=== PATIENT | male | born 1975 | race African-American/Black ===

== ENCOUNTER 2017-08-20 15:12 | Emergency (ER) | payer OTHER ==
[~2017-08-20] VITALS: Ht 167.6 cm; Wt 68.0 kg
--- NOTE | ~2017-08-20 | EKG ---
[address] [address] ELECTROCARDIOGRAM REPORT Name: JOSE CANALES Room #: DEP Nico#: [id number] Admission: 08/20/17 Attend Phys: Discharge: 08/20/17 Date of : 75 Report #: [id number] THIS REPORT FOR: //name// [facility] ED Test Date: 2017-08-20 Test Time: 15:14:19 Pat Name: JOSE CANALES Department: Room: Gender: M [employer]: MZOOK : 1975 Requested By: Maribell Rodriguez Order Number: [id number] MD: Kieran Vidal Measurements Intervals [place] Rate: 130 P: 85 ID: 130 QRS: 87 QRSD: 89 T: 24 QT: 311 QTc: 458 Interpretive Statements Sinus tachycardia Otherwise no significant abnormality No previous ECG available for comparison Electronically Signed On 08-21-2017 8:06:28 CDT by Kieran Vidal [email or web address] <ELECTRONICALLY SIGNED> By: Kieran Vidal MD, [facility] 08/21/17 0806 1514 1514 Kieran Vidal MD, FACC /EPI
[2017-08-20 15:47] LABS: ABSOLUTE NEUTROPHILS 5.7 thou/uL (1.4-8.2); BASOPHILS 0.4 % (0.0-2.0); HEMATOCRIT 38.2 % (42.0-52.0); LYMPHOCYTES 19.6 % (24.0-44.0); MCH 31.2 pg (26.0-34.0); MCV 91.7 fL (80.0-100.0); MONOCYTES 9.7 % (1.0-8.0); PLATELET COUNT 239 thou/uL (150-400); POLYS 69.3 % (36.0-66.0); RBC 4.17 mil/uL (4.50-6.00); RDW 13.9 % (10.5-14.5); WBC 8.2 thou/uL (4.0-11.0)
[2017-08-20 15:56] LABS: ANION GAP 11 mmol/L (7-16); BUN 13 mg/dL (7-18); CHLORIDE 106 mmol/L (98-107); CO2 24 mmol/L (21-32); CREATININE 1.1 mg/dL (0.7-1.3); GLUCOSE 173 mg/dL (74-106); POTASSIUM 3.7 mmol/L (3.5-5.1); SODIUM 141 mmol/L (136-145)
[2017-08-20 16:03] LABS: SALICYLATE 4.7 mg/dL (2.8-20.0)
[2017-08-20 18:18] LABS: AMP/METHAMP POSITIVE (Negative); BARBITURATES Negative (Negative); BENZODIAZEPINES Negative (Negative); COCAINE POSITIVE (Negative); METHADONE Negative (Negative); OPIATES Negative (Negative); PCP POSITIVE (Negative)
[2017-08-20 18:48] VITALS: BP 132/74
== END 2017-08-20 18:56 | disposition home or self-care (01) ==
LOC: ER 15:12
PROVIDERS: Emergency Medicine
DX: F19.10 Other psychoactive substance abuse, uncomplicated (principal); R41.82 Altered mental status, unspecified